=== PATIENT | male | born 2005 | race African-American/Black ===

== ENCOUNTER 2023-04-16 16:50 | Emergency (ER) | payer OTHER, SELFPAY ==
[2023-04-16 17:06] VITALS: BP 122/76; PULSE 51; RESP 16; TEMP 36; O2SAT 99
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
== END 2023-04-16 18:05 | disposition home or self-care (01) ==
PROVIDERS: Emergency Provider Nurse Practitioner Family
DX: R04.0 Epistaxis (principal); J45.909 Unspecified asthma, uncomplicated
CPT/HCPCS: 99211; G0463

== ENCOUNTER 2023-04-24 14:45 | Emergency (ER) | payer SELFPAY ==
[2023-04-24 15:03] VITALS: BP 102/49; PULSE 52; RESP 14; TEMP 36.8; O2SAT 100
--- NOTE | 2023-04-24 15:16 | ED.URI ---
HPI - URI/Sore Throat General Chief Complaint: Upper Respiratory Infection Stated Complaint: Sinus Source: patient and RN notes reviewed History of Present Illness HPI Narrative: 17 yo M presents to urgent care requesting a work note. Pt states he was exposed to covid this past week. Pt states he had a runny nose and feeling fatigued for the last couple days. Pt states he is feeling better now but he called off yesterday. Pt denies any fevers, chills, chest pain, SOB, sore throat, ear pain, vomiting, or diarrhea. Pt has not taken any medicine for his symptoms. Related Data Home Medications Medication Instructions Recorded Confirmed No Home Medications 04/24/23 04/24/23 Allergies Allergy/AdvReac Type Severity Reaction Status Date / Time No Known Allergies Allergy Verified 04/24/23 15:00 Review of Systems Review of Systems: Pertinent positives and pertinent negatives per HPI. PMFSH Comments At the time of my signature, I reviewed and agree with the nursing past medical, surgical, social, and family history. There is no relevant family history pertinent to the patient complaint. Exam Narrative: GENERAL: This is a well-nourished, well-developed patient, in no apparent distress. HEAD: normocephalic, atraumatic. EYES: Sclera clear/white. Vision is grossly intact. EARS: External ears normal, auditory canals clear and without drainage, TMs normal without perforation. Hearing grossly intact. NOSE: External nose normal with no obvious nasal discharge, nares without redness, no rhinorrhea. THROAT: Mucous membranes moist, posterior pharynx clear. NECK: Neck supple, non-tender without lymphadenopathy, masses or thyromegaly. CARDIOVASCULAR: Regular rate and rhythm without murmurs, gallops, or rubs. RESPIRATORY: Clear to auscultation. Breath sounds equal bilaterally. No wheezes, rales, or rhonchi. SKIN: warm, intact with no suspicious lesions or rash, good texture and turgor. NEURO: awake, alert, and oriented to person, place and time. There were no obvious focal neurologic abnormalities. EXTREMITIES: No clubbing, cyanosis, or edema. No joint tenderness, effusion, or edema noted. BACK: Nontender without deformity or crepitus. No flank tenderness. Course Course Level of Care: Express Care Visit Vital Signs Vital signs: Vital Signs Temperature 98.2 F 04/24/23 15:03 Pulse Rate 52 L 04/24/23 15:03 Respiratory Rate 14 04/24/23 15:03 Blood Pressure 102/49 L 04/24/23 15:03 Pulse Oximetry 100 04/24/23 15:03 Oxygen Delivery Room Air 04/24/23 15:03 Temperature 98.2 F 04/24/23 15:03 Pulse Rate 52 L 04/24/23 15:03 Respiratory Rate 14 04/24/23 15:03 Blood Pressure 102/49 L 04/24/23 15:03 Pulse Oximetry 100 04/24/23 15:03 Oxygen Delivery Room Air 04/24/23 15:03 Reviewed MDM - URI/Sore Throat MDM Narrative Medical decision making narrative: Viral illness may last between 7-12days; antibiotic is NOT recommended at this time. Recommend antihistamine such as Benadryl at night time and Claritin/Zyrtec/Nannette during the day. Increase your Vitamin C intake. Also, recommend symptomatic treatment includes: rest, fluids, increase humidity of the air at home with a humidifier in the bedroom. Recommend Acetaminophen or nonsteroidal anti-inflammatory agents(NSAIDs) as directed in the bottle to reduce fever and/pain/headache. Avoid smoking/second-hand smoke. Limit visits to areas with large crowds. Frequent hand washing or hand stabilizing machine operator is one of the best ways to prevent spread of infection. Differential Diagnosis Differential diagnosis: Likely upper respiratory infection, sinusitis and viral infection Critical Care Time Critical Care Time Critical Care Time: No Discharge Plan Discharge Clinical Impression: Upper respiratory infection Qualifiers: URI type: unspecified viral URI Qualified Code(s): J06.9 - Acute upper respiratory infection, unspecified Patient Dispo
== END 2023-04-24 15:25 | disposition home or self-care (01) ==
PROVIDERS: Emergency Provider Nurse Practitioner Family
DX: J06.9 Acute upper respiratory infection, unspecified (principal)
CPT/HCPCS: 99211; G0463

== ENCOUNTER 2024-03-03 15:26 | Emergency (ER) | payer OTHER, SELFPAY ==
[2024-03-03 15:37] VITALS: BP 108/59; PULSE 62; RESP 16; TEMP 36.7; O2SAT 100
--- NOTE | 2024-03-03 15:56 | ED.UPPEXIN ---
HPI - Extremity Injury (Upper) General Chief Complaint: Extremity Injury, Upper Stated Complaint: left middle finger painful Time Seen by Provider: 03/03/24 15:45 Source: patient Mode of arrival: ambulatory Limitations: no limitations History of Present Illness HPI narrative: Adama is a 18-year-old male that presents in the clinic today with complaints of left 3rd finger pain and swelling. He denies any known trauma or injury, however, he has been biting his nails more often than usual. He denies any drainage or fevers/chills. MD complaint: injury to: finger Related Data Allergies Allergy/AdvReac Type Severity Reaction Status Date / Time No Known Allergies Allergy Verified 03/03/24 15:33 Review of Systems Review of Systems: Pertinent positives per HPI. Patient denies any fever, chills, rash, headache, visual changes, dizziness, cough, runny nose, sore throat, shortness of breath, chest pain, palpitations, nausea, vomiting, diarrhea, constipation, abdominal pain, or any urinary issues. PMFSH Comments At the time of my signature, I reviewed and agree with the nursing past medical, surgical, social, and family history. There is no relevant family history pertinent to the patient complaint. Exam Narrative: General: Well-developed, well nourished, in no apparent distress Integumentary: [place], warm, and dry, intact. Left distal third phalanx erythematous, edematous, and tender to palpation Course Course Emergency Course: Portions of this record may have been created with voice recognition software. Level of Care: Express Care Visit Vital Signs Vital signs: Vital Signs Temperature 36.7 C 03/03/24 15:37 Pulse Rate 62 03/03/24 15:37 Respiratory Rate 16 03/03/24 15:37 Blood Pressure 108/59 L 03/03/24 15:37 Pulse Oximetry 100 03/03/24 15:37 Oxygen Delivery Room Air 03/03/24 15:37 Temperature 36.7 C 03/03/24 15:37 Pulse Rate 62 03/03/24 15:37 Respiratory Rate 16 03/03/24 15:37 Blood Pressure 108/59 L 03/03/24 15:37 Pulse Oximetry 100 03/03/24 15:37 Oxygen Delivery Room Air 03/03/24 15:37 Vital signs reviewed MDM - Extremity Injury (Upper) MDM Narrative Medical decision making narrative: At the time of visit patient is resting comfortably on the exam table. Patient appears to be nontoxic. Plan: I suspect patient has paronychia. I will send a prescription for clindamycin. Prescription reviewed with patient. Supportive measures were discussed with the patient and they voiced understanding discharge instructions and agrees to treatment plan. Return precautions reviewed Differential Diagnosis Differential diagnosis: Likely finger sprain, dislocation of finger and other (Paronychia, cellulitis) Discharge Plan Discharge Clinical Impression: Paronychia Patient Disposition: Home, Self-Care Condition: Stable Instructions: Antibiotic Form, Paronychia (ED) Additional Instructions: Keep area clean and dry May apply triple antibiotic ointment to the affected area twice daily Soak finger and warm Epson salt water for 15 minutes 3 times a day Take clindamycin as prescribed Follow-up with your primary care doctor in 3-5 days if symptoms persist Go to the emergency room if symptoms worsen-increased redness, swelling, pain, purulent discharge, streaking, or fever Prescriptions: New clindamycin HCl 300 mg capsule 300 mg PO Q8H 7 Days Qty: 21 0RF Follow-up/Referrals: PHYSICIAN,DISHTANK OPERATOR [Primary Care Provider] - Time of Disposition: 15:58 Quality NIHSS Nursing Documentation ED NIHSS nursing documentation: reviewed/agree
== END 2024-03-03 16:01 | disposition home or self-care (01) ==
PROVIDERS: Emergency Provider Nurse Practitioner Family
DX: L03.012 Cellulitis of left finger (principal); J45.909 Unspecified asthma, uncomplicated
CPT/HCPCS: 99213; G0463

== ENCOUNTER 2024-04-14 23:24 | Emergency (ER) | payer OTHER, SELFPAY ==
--- NOTE | ~2024-04-14 | XR_ITS ---
EXAMINATION: XR chest 2V DATE: 04/15/2024 03:58 INDICATION: Upper respiratory infection. TECHNIQUE: Frontal and lateral views of the chest were obtained. COMPARISON: None. FINDINGS: There is no pneumonia, pleural effusion, or pneumothorax. The heart size is normal. Pneumom ediastinum is noted. IMPRESSION: 1. Pneumomediastinum. Reviewed, dictated and finalized at location A. IMPRESSION: 1. Pneumomediastinum.
[2024-04-14 23:25] VITALS: BP 127/73; PULSE 66; RESP 16; TEMP 36.6; O2SAT 98
--- NOTE | 2024-04-15 00:55 | PC.NURSE ---
Pt ambulates to the triage desk and states he cannot breathe and is having difficulty breathing. This RN offered to recheck pts vitals and pt declined and ambulated out of the ED waiting area. Pts visitor states they will be going [facility] and ambulated out behind the pt.
--- NOTE | 2024-04-15 00:59 | PC.NURSE ---
Pt seen ambulating back into ED waiting area.
[2024-04-15 03:17] VITALS: RESP 17
--- NOTE | 2024-04-15 03:44 | ED.GENADULT ---
HPI - General Adult General Chief complaint: Unspecified Stated complaint: pill stuck in throat Time Seen by Provider: 04/15/24 03:18 History of Present Illness HPI narrative: 18-year-old male presenting with concerns for a pill stuck in throat. States that he has been experiencing a runny nose and cough for the last couple of days. He took an [id number] nasal decongestant and feels that it got stuck in his esophagus. States that it feels like it is going up and down. He is still able to swallow normally. Complains of mild shortness of breath since his URI symptoms started. No further complaints. Related Data Allergies Allergy/AdvReac Type Severity Reaction Status Date / Time No Known Allergies Allergy Verified 03/03/24 15:33 Review of Systems Review of Systems: All systems reviewed & are unremarkable except as noted in HPI and below Exam Narrative: GENERAL: Well-appearing and in no acute distress. HEAD: Normocephalic, atraumatic. EYES: PERRLA and EOMI. ENT: Mucous membranes moist. Handling his secretions normally NECK: Supple. CHEST: Clear to auscultation. No respiratory distress. HEART: Regular rate and rhythm ABDOMEN: Soft, nontender, nondistended EXTREMITIES: Normal range of motion. SKIN: Warm, dry, no rash. NEURO: Alert and oriented x3. PSYCH: Normal mood and affect. Course Vital Signs Vital signs: Vital Signs Temperature 97.8 F 04/14/24 23:25 Pulse Rate 66 04/14/24 23:25 Respiratory Rate 16 04/14/24 23:25 Blood Pressure 127/73 04/14/24 23:25 Pulse Oximetry 98 04/14/24 23:25 Temperature 97.8 F 04/14/24 23:25 Pulse Rate 69 04/15/24 05:55 Respiratory Rate 17 04/15/24 05:55 Blood Pressure 110/73 04/15/24 05:55 Pulse Oximetry 100 04/15/24 05:55 Medical Decision Making [facility] Narrative Medical decision making narrative: 18-year-old male presenting with URI symptoms and concerns for a pill stuck in his throat. Vitals stable. Exam remarkable for the above. Chest x-ray without acute abnormalities. Patient is negative for COVID, influenza. patient was given IM glucagon and states that he is feeling improved. He is tolerating p.o. intake. Feel he is safe for outpatient management. Will send in for Pepcid he advised close PCP follow-up. Appropriate return precautions given. Patient is agreeable this plan. Discharged in stable condition. Received a call from Radiology that they see a pneumo mediastinum on his chest x-ray. Patient has been called and advised to return for further workup. Differential Diagnosis Differential Diagnosis: URI, esophageal impaction, esophagitis Medical Records Medical records reviewed: Yes I reviewed the external patient's medical records. Vital Signs Vital Signs: Vital Signs Temperature 97.8 F 04/14/24 23:25 Pulse Rate 66 04/14/24 23:25 Respiratory Rate 16 04/14/24 23:25 Blood Pressure 127/73 04/14/24 23:25 Pulse Oximetry 98 04/14/24 23:25 Temperature 97.8 F 04/14/24 23:25 Pulse Rate 69 04/15/24 05:55 Respiratory Rate 17 04/15/24 05:55 Blood Pressure 110/73 04/15/24 05:55 Pulse Oximetry 100 04/15/24 05:55 Lab Data Lab results reviewed: Yes I reviewed the patient's lab results. Labs: Lab Results 04/15/24 Range/Units 03:52 Influenza A (RT-PCR) Negative (Negative) Influenza B (RT-PCR) Negative (Negative) RSV (RT-PCR) Negative (Negative) SARS-CoV-2 RNA (RT-PCR) Negative (Negative) Critical Care Time Critical Care Time Critical Care Time: No Discharge Plan Discharge Clinical Impression: URI (upper respiratory infection), Esophageal pain Patient Disposition: Home, Self-Care Condition: Stable Instructions: Antibiotic Form, Viral Syndrome (ED) Additional Instructions: You are negative for COVID and influenza. Your chest x-ray shows no acute abnormalities. We have started you on a medicine to help with the discomfort in your eso
[2024-04-15] MEDS: GLUCAGON FOR INJ 1 MG VIAL IM (03:49)
[2024-04-15 04:40] LABS: Influenza A QL RT-PCR Negative (Negative); Influenza B QL RT-PCR Negative (Negative); RSV RNA, RT-PCR Negative (Negative); SARS-CoV-2 RNA PCR Negative (Negative)
[2024-04-15 05:55] VITALS: BP 110/73; PULSE 69; RESP 17; O2SAT 100
--- NOTE | 2024-04-15 09:48 | PC.NURSE ---
call to the pt at the bequest of Dr John Paul WRIGHT for the pt to call and speak to myself or EDP related to findings on XRAY from overnight
== END 2024-04-15 05:57 | disposition home or self-care (01) ==
PROVIDERS: Emergency Provider Emergency Medicine
DX: J06.9 Acute upper respiratory infection, unspecified (principal); R07.0 Pain in throat; Z20.822 Contact with and (suspected) exposure to COVID-19
CPT/HCPCS: 71046; 87637; 96372; 99283; J1610